=== PATIENT | male | born 1980 | race African-American/Black ===

== ENCOUNTER 2016-12-08 23:51 | Emergency (ER) | payer SELFPAY ==
[2016-12-08 23:56] VITALS: BP 118/69
== END 2016-12-09 00:33 | disposition home or self-care (01) ==
LOC: ED 23:51
DX: L03.032 Cellulitis of left toe (principal)

== ENCOUNTER 2017-01-30 22:28 | Emergency (ER) | payer OTHER ==
[2017-01-31 00:42] VITALS: BP 130/95
== END 2017-01-31 00:35 | disposition home or self-care (01) ==
LOC: ED 22:28
DX: S61.214A Laceration without foreign body of right ring finger without damage to nail, initial encounter (principal); X58.XXXA Exposure to other specified factors, initial encounter; Y93.89 Activity, other specified; Y99.8 Other external cause status; Y92.89 Other specified places as the place of occurrence of the external cause
CPT/HCPCS: A4570

== ENCOUNTER 2017-02-14 20:52 | Emergency (ER) | payer OTHER ==
[~2017-02-14] VITALS: Ht 172.7 cm; Wt 63.5 kg
[2017-02-14 20:56] VITALS: BP 122/72
== END 2017-02-14 23:12 | disposition left against medical advice (07) ==
LOC: ED 20:52
DX: Z53.21 Procedure and treatment not carried out due to patient leaving prior to being seen by health care provider (principal)